=== PATIENT | female | born 1950 | race Caucasian/White ===

== ENCOUNTER → 2016-11-20 | Outpatient (REF) | payer MEDICARE, OTHER | LOC: M SFHCCAPE 14:01 | PROVIDERS: ATTEND Physician Assistant | DX: J02.9 Acute pharyngitis, unspecified (principal) ==

== ENCOUNTER → 2017-01-15 | Outpatient (REF) | payer MEDICARE, OTHER | LOC: M SFHCWAGY 14:37 | PROVIDERS: ATTEND Nurse Practitioner Women's Health | DX: Z12.31 Encounter for screening mammogram for malignant neoplasm of breast (principal); Z12.4 Encounter for screening for malignant neoplasm of cervix; R87.610 Atypical squamous cells of undetermined significance on cytologic smear of cervix (ASC-US); Z12.12 Encounter for screening for malignant neoplasm of rectum; Z85.41 Personal history of malignant neoplasm of cervix uteri | CPT/HCPCS: 82270; 87624; G0101; G0123; G0202 ==

== ENCOUNTER → 2017-01-15 | Outpatient (CLI) | payer MEDICARE, BC ==
--- NOTE | 2017-01-15 15:09 | REPMRS ---
Patient History The patient states she had a clinical breast exam in 01/07 Patient is postmenopausal, has history of cervical cancer at age 29, and had first child at age 34. Family history of breast cancer in maternal aunt under age 50. Digital Woman Screen Mammo: January 15, 2017 - Exam #: [id number] Bilateral CC and MLO view(s) were taken. Technologist: Evi Avila, Technologist Prior study comparison: December 28, 2015, digital woman screen mammo performed at [facility]. December 23, 2014, digital woman screen mammo performed at [facility]. FINDINGS: There are scattered fibroglandular densities. There has been no change in the appearance of the mammogram from the prior studies. There is a mild amount of residual fibroglandular tissue which is fairly symmetric. There is no interval development of dominant mass, architectural distortion, or clustered microcalcification suggestive of malignancy. ASSESSMENT: BI-RADS/ACR category 1 mammogram. Negative. Recommendation Routine screening mammogram in 1 year (for women over age 40). This mammogram was interpreted with the aid of an FDA-approved computer-aided dectection system. Electronically Signed By: Hank Hinson MD 01/15/17 3300
== END ==
LOC: M WHC 14:07
PROVIDERS: ATTEND Nurse Practitioner Women's Health
DX: Z12.31 Encounter for screening mammogram for malignant neoplasm of breast (principal); Z78.0 Asymptomatic menopausal state; Z12.12 Encounter for screening for malignant neoplasm of rectum

== ENCOUNTER → 2017-01-18 | Outpatient (REF) | payer MEDICARE, BC, OTHER | LOC: M SFHCWAGY 10:29 | PROVIDERS: ATTEND Family Medicine | DX: D07.1 Carcinoma in situ of vulva (principal) | CPT/HCPCS: 56501; 88304; G0463 ==

== ENCOUNTER → 2017-02-20 | Outpatient (REF) | payer MEDICARE, BC, OTHER ==
[2017-02-20 16:50] LABS: ANION GAP 11 MEQ/L (8-16); BLOOD UREA NITROGEN 14 MG/DL (7-18); CALCIUM LEVEL 9.6 MG/DL (8.8-10.2); CARBON DIOXIDE LEVEL 26 MEQ/L (21-32); CHLORIDE LEVEL 106 MEQ/L (98-107); CREATININE FOR GFR 0.89 MG/DL (0.55-1.02); GLOMERULAR FILTRATION RATE > 60.0 (>45); GLUCOSE, FASTING 72 MG/DL (80-110); POTASSIUM SERUM 4.2 MEQ/L (3.5-5.1); SODIUM LEVEL 143 MEQ/L (136-145)
== END ==
LOC: M LAB REF 09:05
PROVIDERS: ATTEND Obstetrics & Gynecology
DX: C53.9 Malignant neoplasm of cervix uteri, unspecified (principal)
CPT/HCPCS: 36415; 80048; 93005; G0463

== ENCOUNTER → 2018-01-16 | Outpatient (REF) | payer MEDICARE, OTHER ==
[2018-01-18 14:10] LABS: HPV HYBRID CAPTURE II Negative (Negative)
== END ==
LOC: M SFHCWAGY 10:33
DX: Z12.4 Encounter for screening for malignant neoplasm of cervix (principal); N95.2 Postmenopausal atrophic vaginitis; Z87.412 Personal history of vulvar dysplasia; Z87.410 Personal history of cervical dysplasia
CPT/HCPCS: G0123

== ENCOUNTER → 2018-01-16 | Outpatient (CLI) | payer MEDICARE, BC | LOC: M WHC 10:17 | DX: Z12.31 Encounter for screening mammogram for malignant neoplasm of breast (principal); M81.0 Age-related osteoporosis without current pathological fracture; Z78.0 Asymptomatic menopausal state; M85.852 Other specified disorders of bone density and structure, left thigh; Z85.41 Personal history of malignant neoplasm of cervix uteri; Z12.4 Encounter for screening for malignant neoplasm of cervix; N95.2 Postmenopausal atrophic vaginitis | CPT/HCPCS: 77067; G0123 ==